=== PATIENT | female | born 2000 | race American Indian/Alaskan Native ===

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

== ENCOUNTER 2019-10-03 21:48 | Emergency (ER) | payer BC, MEDICAID ==
[2019-10-03 21:56] VITALS: BP 132/74
[2019-10-04 01:17] LABS: Bacteria,Urine 3+ /HPF (Negative); Bilirubin,Urine NEG (Negative); Blood,Urine LG (Negative); Color,Urine Yellow (Yellow); RBC,Urine > 182.0 /HPF (0.0-6.0); WBC,Urine > 182.0 /HPF (0.0-6.0)
[2019-10-04 01:19] LABS: HCG Qualitative,Urine Negative (Negative)
[2019-10-04] MEDS ORDERED: AZITHROMYCIN 1 GM ORAL PWDR PACKET PO ONE (01:28)
[2019-10-04] MEDS ORDERED: LIDOCAINE-MPF (1%) 10 MG/1 ML VIAL 5 ML INFILTRATI ONE (01:28)
--- NOTE | 2019-10-04 01:33 | Emergency Department Report ---
ED Female HPI - General Chief complaint: Urogenital-Female Stated complaint: VAGINAL BLEEDING Time Seen by Provider: 10/04/19 00:58 Source: patient Mode of arrival: Ambulatory Limitations: No Limitations - History of Present Illness Initial comments: Patient is a 19-year-old female presents emergency room with complaints of urinary symptoms that began 3 days ago. She has associated hematuria, dysuria, lower abdominal pressure with urinating, urinary frequency. She denies any nausea, vomiting, diarrhea, fever. She states that she has noticed vaginal discharge after having intercourse. She denies any past medical history or allergies to medications. She states that her last menstrual cycle was 09/20/2019. - Related Data Previous Rx's Medication Instructions Recorded Last Taken Type Acetaminophen/Codeine [Tylenol 1 tab PO Q6HR PRN #15 tablet 09/16/16 Unknown Rx /Codeine # 3 tab] Ibuprofen [Motrin 800 MG tab] 800 mg PO Q8HR PRN #30 tablet 09/16/16 Unknown Rx Penicillin Vk [Veetids TAB] 500 mg PO QID #80 tablet 09/16/16 Unknown Rx cephALEXin [Keflex] 500 mg PO BID 7 Days #14 capsule 10/04/19 Unknown Rx Allergies Allergy/AdvReac Type Severity Reaction Status Date / Time No Known Allergies Allergy Unverified 09/16/16 14:07 ED Review of Systems ROS: Stated complaint: VAGINAL BLEEDING Other details as noted in HPI Comment: All other systems reviewed and negative ED Past Medical Hx - Past Medical History Previous Medical History?: No - Surgical History Past Surgical History?: No - Social History Smoking Status: Never Smoker - Medications Home Medications: Home Medications Medication Instructions Recorded Confirmed Last Taken Type Acetaminophen/Codeine [Tylenol 1 tab PO Q6HR PRN #15 tablet 09/16/16 Unknown Rx /Codeine # 3 tab] Ibuprofen [Motrin 800 MG tab] 800 mg PO Q8HR PRN #30 tablet 09/16/16 Unknown Rx Penicillin Vk [Veetids TAB] 500 mg PO QID #80 tablet 09/16/16 Unknown Rx cephALEXin [Keflex] 500 mg PO BID 7 Days #14 capsule 10/04/19 Unknown Rx ED Physical Exam - General Limitations: No Limitations General appearance: alert, in no apparent distress - Head Head exam: Present: atraumatic, normocephalic - Eye Eye exam: Present: normal appearance - ENT ENT exam: Present: mucous membranes moist - Respiratory Respiratory exam: Present: normal lung sounds bilaterally. Absent: respiratory distress, wheezes, rales, rhonchi, stridor, chest wall tenderness, accessory muscle use, decreased breath sounds, prolonged expiratory - Cardiovascular Cardiovascular Exam: Present: regular rate, normal rhythm, normal heart sounds. Absent: systolic murmur, diastolic murmur, rubs, gallop - GI/Abdominal GI/Abdominal exam: Present: soft, normal bowel sounds. Absent: distended, tenderness, guarding, rebound, rigid - Speculum exam: Present: other (pt refused) - Back Exam Back exam: Absent: CVA tenderness (R), CVA tenderness (L) - Neurological Exam Neurological exam: Present: alert, oriented X3 - Psychiatric Psychiatric exam: Present: normal affect, normal mood - Skin Skin exam: Present: warm, dry, intact ED Course Vital Signs 10/03/19 10/03/19 21:53 23:25 Temperature 99.0 F Pulse Rate 115 H 96 H Respiratory 18 Rate Blood Pressure 132/74 O2 Sat by Pulse 100 99 Oximetry ED Medical Decision Making - Medical Decision Making Patient is a 19-year-old female presents emergency room with complaints of urinary symptoms that began 3 days ago. She has associated hematuria, dysuria, lower abdominal pressure with urinating, urinary frequency. She denies any nausea, vomiting, diarrhea, fever. She states that she has noticed vaginal discharge after having intercourse. She denies any past medical history or allergies to medications. She states that her last menstrual cycle was 09/20/2019. Initial vitals in triage with tachycardia which improved upon repeat. UA shows many white blood cells, many red blood cells, leukocyte esterase, nitrites, urine preg is negative. Advised patient that we needed to do a pelvic exam to take swabs for a wet prep and G/C and to r/o clinical signs/sx of PID or TOA. Patient refused pelvic examination. Patient treated prophylactically for G/C and UTI with 1 g ceftriaxone and 1 g azithromycin. Patient given prescription for Keflex for UTI. Advised patient that she needs to sign out AGAINST MEDICAL ADVICE due to not receiving a full and complete medical examination. The patient is alert and oriented x3. The patient exhibits decision-making capacity. The patient is free from distracting injury. The risk of leaving without a complete medical examination, and AGAINST MEDICAL ADVICE, were explained to the patient, and they included , disability, paralysis, permanent loss of quality of life. Patient verbalized understanding to these and was able to articulate these risk in their own words and this conversation was witnessed by LEOBARDO Landrum. - Differential Diagnosis UTI, STD, vaginitis, yeast, BV, PID, TOA Critical care attestation.: If time is entered above; I have spent that time in minutes in the direct care of this critically ill patient, excluding procedure time. ED Disposition Clinical Impression: UTI (urinary tract infection) Qualifiers: Urinary tract infection type: acute cystitis Hematuria presence: with hematuria Qualified Code(s): N30.01 - Acute cystitis with hematuria Disposition: LEFT AGAINST MED ADVICE Is pt being admited?: No Does the pt Need Aspirin: No Condition: Undetermined Instructions: Urinary Tract Infection in Women (ED), Safe Sex (ED), Sexually Transmitted Diseases (ED) Additional Instructions: Please take medication as prescribed. Please go to the health department or an [facility] for a full STD panel. Please have your partner tested and treated as well. Avoid sexual intercourse for 10 days. Return to the emergency room for any new or worsening symptoms. You are leaving today AGAINST MEDICAL ADVICE and without a full evaluation. Prescriptions: cephALEXin [Keflex] 500 mg PO BID 7 Days #14 capsule [facility] - [facility] [Provider Group] - [facility] [Provider Group] - [facility] [Provider [facility]] - [facility] Forms: AMA Form Time of Disposition: 01:32 Print Language: GEORGIAN
== END 2019-10-04 01:53 | disposition left against medical advice (07) ==
LOC: ED 21:48
DX: N39.0 Urinary tract infection, site not specified (principal); Z79.1 Long term (current) use of non-steroidal anti-inflammatories (NSAID); Z79.2 Long term (current) use of antibiotics; Z79.899 Other long term (current) drug therapy
CPT/HCPCS: 81001; 81025; 96372; 99283; J0696